=== PATIENT | male | born 1940 | race Caucasian/White ===

== ENCOUNTER 2018-06-19 19:38 | Inpatient (IN) | payer OTHER, MEDICARE ==
[~2018-06-19] VITALS: Ht 172.7 cm; Wt 67.4 kg
[2018-06-19 20:32] LABS: BASOPHILS ABSOLUTE AUTO 0.09 K/mm3 (0.00-0.23); BASOPHILS PERCENT AUTO 1 % (0-2); EOSINOPHILS ABSOLUTE AUTO 0.64 K/mm3 (0.00-0.68); EOSINOPHILS PERCENT AUTO 5 % (0-6); Hematocrit 30.4 % (37.0-53.0); Hemoglobin 8.6 g/dL (13.5-17.5); IMMATURE GRAN ABSOLUTE AUTO 0.05 K/mm3 (0.00-0.10); IMMATURE GRAN PERCENT AUTO 0 % (0-1); LYMPHOCYTES PERCENT AUTO 15 % (21-46); MONOCYTES ABSOLUTE AUTO 0.98 K/mm3 (0.16-1.47); MONOCYTES PERCENT AUTO 8 % (4-13); Mean Corpuscular HGB 20.1 pg (26.0-34.0); Mean Corpuscular HGB Conc 28.3 g/dL (31.5-36.5); Mean Corpuscular Volume 71 fL (80-100); Mean Platelet Volume 8.8 fL (9.1-12.4); NEUTROPHILS ABSOLUTE AUTO 9.13 K/mm3 (1.96-9.15); NEUTROPHILS PERCENT AUTO 71 % (41-73); Platelet Count 557 K/mm3 (150-400); RDW Standard Deviation 52.6 fL (35.1-46.3); Red Blood Cell Count 4.28 M/mm3 (4.30-5.90); White Blood Cell Count 12.79 K/mm3 (4.00-11.30)
[2018-06-19 20:51] LABS: Alanine Aminotransfer (ALT/SGP 15 U/L (12-78); Albumin, Blood 2.8 g/dL (3.4-5.0); Albumin/Globulin Ratio 0.6 (0.8-1.8); Alk Phos 69 U/L (50-136); Anion Gap 6 mmol/L (6-16); Aspartate Aminotrans (AST/SGOT 14 U/L (12-37); Bilirubin, Total 0.4 mg/dL (0.1-1.0); Blood Urea Nitrogen 18 mg/dL (8-24); CO2, Blood 26 mmol/L (21-32); Calcium, Blood 8.7 mg/dL (8.5-10.1); Chloride, Blood 103 mmol/L (98-108); Creatinine, Blood 1.06 mg/dL (0.60-1.20); Glomerular Filtration Rate >60 (60-); Glucose, Blood 98 mg/dL (70-99); Sodium, Blood 135 mmol/L (136-145); Total Protein, Blood 7.8 g/dL (6.4-8.2)
--- NOTE | 2018-06-20 08:06 | NUR ---
transfer report from Ariane in ER on PT sent from [facility] due to pulmonary abscess and potential heart valve vegetation. PT on no home rx says he takes dayquil or nyquil prn. on room air without complaints of acute distress. on zosyn. will be one tele and aspiration precautions. left dentures at home. DTR will bring in Echo will be done.
--- NOTE | 2018-06-20 08:42 | NUR ---
ECHOCARDIOGRAM COMPLETE
[2018-06-20 08:55] LABS: Hematocrit 27.6 % (37.0-53.0); Hemoglobin 7.9 g/dL (13.5-17.5); Mean Corpuscular HGB 20.1 pg (26.0-34.0); Mean Corpuscular HGB Conc 28.6 g/dL (31.5-36.5); Mean Corpuscular Volume 70 fL (80-100); Mean Platelet Volume 8.8 fL (9.1-12.4); Platelet Count 497 K/mm3 (150-400); RDW Coefficient Variation 20.8 % (11.7-14.2); RDW Standard Deviation 51.9 fL (35.1-46.3); Red Blood Cell Count 3.94 M/mm3 (4.30-5.90); White Blood Cell Count 12.92 K/mm3 (4.00-11.30)
[2018-06-20 08:56] LABS: IMMATURE RETIC FRACTION 26.8 % (2.3-16.0); RETIC HGB EQUIVALENT 20.5 pg (28.20-36.60); RETICULOCYTE ABSOLUTE 0.0465 M/mm3 (0.0200-0.1100); RETICULOCYTE COUNT PERCENT 1.18 % (0.50-2.50)
[2018-06-20 09:15] LABS: Anion Gap 7 mmol/L (6-16); Blood Urea Nitrogen 18 mg/dL (8-24); CO2, Blood 25 mmol/L (21-32); Calcium, Blood 8.5 mg/dL (8.5-10.1); Chloride, Blood 106 mmol/L (98-108); Creatinine, Blood 1.06 mg/dL (0.60-1.20); Glomerular Filtration Rate >60 (60-); Glucose, Blood 138 mg/dL (70-99); Potassium, Blood 4.1 mmol/L (3.5-5.5); Sodium, Blood 138 mmol/L (136-145)
[2018-06-20 09:20] LABS: Percent Saturation 3.3 % (20.0-50.0)
[2018-06-20 13:11] LABS: Stool Occult Blood Guaiac 1 Neg (Neg)
--- NOTE | 2018-06-20 18:15 | NUR ---
SHIFT SUMMARY PT IS INDEPENDENT, ON ROOM AIR, TELEMETRY MONITORING HAS BEEN DC'D. DR. GHOTRA AND DR. TAMAYO WERE ASKED TO CONSULT ON THIS PT. PT HAS A LUNG ABSCESS. PT IT ON ASPIRATION PRECAUTIONS AND HAD A SPEECH EVAL TODAY. THERE IS A CHANCE THE PT WILL GET A BIOPSY OF HIS LUNG TOMORROW. I DID GET ONE SPUTUM SAMPLE SENT TO LAB, MORE MAY BE REQUIRED. I COLLECTED A STOOL SAMPLE WELL AND SENT IT. PT IS RECEIVING IV ANTIBIOTICS.
--- NOTE | 2018-06-20 18:46 | NUR ---
SPUTUM CULTURES I DID COLLECT ONE OF THE TESTS. HOWEVER, DR. TAMAYO FELT LIKE MORE SPUTUM THAN WHAT I COLLECTED WOULD BE NEEDED.
--- NOTE | 2018-06-21 04:00 | NUR ---
77 YEAR OLD MALE [employer] WAS SENT FROM [facility] WHERE HE WAS EVALULATED FOR COMPLAINTS OF SOB AND DIFFICULTY SWALLOWING. HE HECENTLY HAD BARIUM SWALLOW. PT WAS 58 YEAR SMOKER QUIT IN APR 2018. ON ROOM AIR WITH SATS GREATER THAN 90%. ADMISSION DX OF PULMONARY ABSCESS AND HAD PULMONARY CONSULT YESTERDAY RX CT OF CHEST TODAY WITH CONTRAST. HAD ECHO EVAL YESTERDAY WHICH DIDN'T SHOW HEART VALVE VEGETATION. PT HAS COUGH PRODUCTIVE OF SOME THICK MORROW SPUTUM SENT FOR CULTURE. CONTINUES ON IV ANTIBIOTICS FOR PULMONARY INFECTION. POOR APPETITE RECENT WT LOSS. HAS PUREE DIET ORDERED WITH ASPIRATION PRECAUTIONS ORDERED. HAS DAUGHTER LOCALLY WHO BROUGHT IN HIS DENTURES. PICC LINE PLACEMENT ORDERED FOR ANTIBIOTICS.
--- NOTE | 2018-06-21 04:36 | NUR ---
CHEST XRAY SHOWS VERY LARGE HIATAL HERNIA AND RT LUNG NECROTIC TUMOR OR ABSCESS OF RT MIDDLE LOBE OF LUNG WITH NECROTIC LYMPH NODE. POSSIBLE ASBESTOS EXPOSURE IN [employer] YEARS OF [employer] WHILE IN [employer]. WORKING WITH SPEECH THERAPY AND TEST ORDERED FOR TODAY.
[2018-06-21 05:25] LABS: BASOPHILS ABSOLUTE AUTO 0.07 K/mm3 (0.00-0.23); BASOPHILS PERCENT AUTO 1 % (0-2); EOSINOPHILS ABSOLUTE AUTO 0.83 K/mm3 (0.00-0.68); EOSINOPHILS PERCENT AUTO 6 % (0-6); Hematocrit 28.5 % (37.0-53.0); Hemoglobin 8.1 g/dL (13.5-17.5); IMMATURE GRAN ABSOLUTE AUTO 0.05 K/mm3 (0.00-0.10); IMMATURE GRAN PERCENT AUTO 0 % (0-1); LYMPHOCYTES ABSOLUTE AUTO 1.26 K/mm3 (0.84-5.20); LYMPHOCYTES PERCENT AUTO 9 % (21-46); MONOCYTES ABSOLUTE AUTO 1.14 K/mm3 (0.16-1.47); MONOCYTES PERCENT AUTO 9 % (4-13); Mean Corpuscular HGB 19.8 pg (26.0-34.0); Mean Corpuscular HGB Conc 28.4 g/dL (31.5-36.5); Mean Corpuscular Volume 70 fL (80-100); Mean Platelet Volume 8.7 fL (9.1-12.4); NEUTROPHILS ABSOLUTE AUTO 10.05 K/mm3 (1.96-9.15); NEUTROPHILS PERCENT AUTO 75 % (41-73); Platelet Count 492 K/mm3 (150-400); RDW Coefficient Variation 20.8 % (11.7-14.2); RDW Standard Deviation 51.4 fL (35.1-46.3); Red Blood Cell Count 4.09 M/mm3 (4.30-5.90)
[2018-06-21 05:44] LABS: International Normalized Ratio 1.08; Prothrombin Time Results 11.4 Sec (9.7-11.5)
[2018-06-21 05:57] LABS: Anion Gap 11 mmol/L (6-16); Blood Urea Nitrogen 11 mg/dL (8-24); CO2, Blood 22 mmol/L (21-32); Calcium, Blood 8.7 mg/dL (8.5-10.1); Chloride, Blood 103 mmol/L (98-108); Creatinine, Blood 0.91 mg/dL (0.60-1.20); Glomerular Filtration Rate >60 (60-); Glucose, Blood 98 mg/dL (70-99); Potassium, Blood 3.9 mmol/L (3.5-5.5); Sodium, Blood 136 mmol/L (136-145)
--- NOTE | 2018-06-21 08:58 | NUR ---
CALLED DR HOSEA TERESA'S DR. TERESA STATES HE HAS A BAD HEADACHE. ORDERED TYLENOL PRN FOR HEADACHE PAIN.
--- NOTE | 2018-06-21 18:23 | NUR ---
SHIFT SUMMARY PT TAKEN FOR CT SCAN W/CONTRAST, AND A SPEECH MODIFIED BARIUM SWALLOW. HE ALSO HAD A PICC LINE PLACED TODAY. HE IS ON IV ANTIBIOTICS FOR AN ABSCESS. HOWEVER THE DR'S ARE TRYING TO DIAGNOSE THE MASS IN THE PT'S LUNGS, THEY SUSPECT IT IS COULD BE POSSIBLY CANCER. THERE INVOLVMENT IN THE LYMPH NODES WELL. THE PT IS AWARE OF THE POSSIBILITY. PLAN IS FOR PT TO DISCHARGE TOMORROW, HE WILL RETURN FOR A SCHEDULED BIOPSY NEXT WEEK. PT APPEARED MORE TIRED FROM ALL THE PROCEDURES/TESTS. NO OTHER OUTSTANDING CHANGES DURING SHIFT.
[2018-06-22 06:45] LABS: BASOPHILS ABSOLUTE AUTO 0.06 K/mm3 (0.00-0.23); BASOPHILS PERCENT AUTO 0 % (0-2); EOSINOPHILS ABSOLUTE AUTO 0.92 K/mm3 (0.00-0.68); EOSINOPHILS PERCENT AUTO 6 % (0-6); Hematocrit 29.3 % (37.0-53.0); Hemoglobin 8.3 g/dL (13.5-17.5); IMMATURE GRAN ABSOLUTE AUTO 0.05 K/mm3 (0.00-0.10); IMMATURE GRAN PERCENT AUTO 0 % (0-1); LYMPHOCYTES ABSOLUTE AUTO 1.26 K/mm3 (0.84-5.20); LYMPHOCYTES PERCENT AUTO 9 % (21-46); MONOCYTES ABSOLUTE AUTO 1.06 K/mm3 (0.16-1.47); MONOCYTES PERCENT AUTO 7 % (4-13); Mean Corpuscular HGB 19.8 pg (26.0-34.0); Mean Corpuscular HGB Conc 28.3 g/dL (31.5-36.5); Mean Corpuscular Volume 70 fL (80-100); Mean Platelet Volume 8.6 fL (9.1-12.4); NEUTROPHILS ABSOLUTE AUTO 11.18 K/mm3 (1.96-9.15); NEUTROPHILS PERCENT AUTO 77 % (41-73); Platelet Count 479 K/mm3 (150-400); RDW Coefficient Variation 20.6 % (11.7-14.2); RDW Standard Deviation 51.4 fL (35.1-46.3); Red Blood Cell Count 4.19 M/mm3 (4.30-5.90); White Blood Cell Count 14.53 K/mm3 (4.00-11.30)
--- NOTE | 2018-06-22 06:46 | NUR ---
SHIFT SUMMARY: PT IS INDEPENDENT IN ROOM, A&O X 4. ON 2L VIA NC. LS COARSE T/O. ASPIRATION PRECAUTIONS IN PLACE. DENIES PAIN. PICC LINE PATENT AND FLUSHING; AM BLOOD DRAWS. POSS D/C TODAY.
[2018-06-22 06:59] LABS: Anion Gap 8 mmol/L (6-16); Blood Urea Nitrogen 12 mg/dL (8-24); Bun/Creatinine Ratio 13.6 (12.0-20.0); CO2, Blood 25 mmol/L (21-32); Calcium, Blood 8.7 mg/dL (8.5-10.1); Chloride, Blood 103 mmol/L (98-108); Creatinine, Blood 0.88 mg/dL (0.60-1.20); Glomerular Filtration Rate >60 (60-); Glucose, Blood 104 mg/dL (70-99); Potassium, Blood 4.2 mmol/L (3.5-5.5); Sodium, Blood 136 mmol/L (136-145)
--- NOTE | 2018-06-22 09:50 | NUR ---
PT PLEASANT COOP A/O. DENIES PAIN. H/R IRREG, NO MURMER NOTED. NO TELE. LUNGS CLEAR EXCEPT DIM LOW RT. ON 2L N/C. RESP EASY, UNLABORED. BT X4 LAST BM THIS AM. STATES SOME DIARRHEA THIS AM. VOIDS PER BATHROOM. INDEPENDANT IN ROOM. BED IN LOW POSITION, CALL LITE IN REACH, CALLS APPROP
[2018-06-22] MEDS ORDERED: ACET325 PO (11:12)
[2018-06-22] MEDS ORDERED: Ferrous Sulfat325 M2 PO (11:13)
[2018-06-22] MEDS ORDERED: LOPE2C PO (11:13)
[2018-06-22] MEDS ORDERED: SACC250C PO (11:13)
[2018-06-22] MEDS ORDERED: Augmentin 875-1 EACH PO (11:14)
--- NOTE | 2018-06-22 11:25 | NUR ---
MOST OFFICE CLOSED SAT THRU SUNDAY. OPEN SUNDAY. WE REQUESTED MOST OFFICE TO CALL PT SUNDAY. DISCUSSED WITH DR ROSE. IS AWARE AND NO CHANGES ORDERED.
[2018-06-22 11:30] LABS: International Normalized Ratio 1.17; Prothrombin Time Results 12.2 Sec (9.7-11.5)
--- NOTE | 2018-06-22 12:26 | NUR ---
IV PULLED BY ESTEFANY RUIZ. DISCHARGE REVIEWED WITH PT WHO VERBALIZED UNDERSTANDING OF MEDS AND INSTRUCTIONS. PT UNDERSTANDS MOST OFFICE CLOSED SUNDAY. NO LUNG BIOPSY AVAIL TO SCHEDULE NOW. DR MILTON MARTINEZ NOTIFIED. PT STILL D/C NORMAL.. MOST OFFICE TO CALL PT TUES WHEN IN. SCHEDULE WHEN CAN. PT PENDING RIDE FROM DAUGHTER SHORTLY
[2018-06-22 13:06] LABS: QUANTIFERON MITOGEN VALUE >10.00 IU/mL (.); QUANTIFERON NIL VALUE 0.05 IU/mL (.); QUANTIFERON TB1 AG VALUE 0.05 IU/mL (.); QUANTIFERON TB2 AG VALUE 0.05 IU/mL (.); QUANTIFERON-TB GOLD PLUS Negative (Negative)
--- NOTE | 2018-06-22 13:06 | NUR ---
PT WHEELED TO DOOR AT 1245. BY AIDE.
== END 2018-06-22 12:50 | disposition home or self-care (01) | DRG 180 ==
LOC: ER 19:38 → MEDS 23:35 → ICUE 06-20 00:56 → MEDS 06-20 03:39 → ENPENDDIS 06-22 10:35 → MEDS 06-22 12:50
PROVIDERS: Emergency Medicine; Hospitalist; Internal Medicine Critical Care Medicine; Nurse Practitioner Acute Care; ADMIT Internal Medicine
PROC: 02HV33Z Insertion of Infusion Device into Superior Vena Cava, Percutaneous Approach (ICD-10-PCS; principal; 2018-06-19)
DX: C34.90 Malignant neoplasm of unspecified part of unspecified bronchus or lung (principal); J96.91 Respiratory failure, unspecified with hypoxia; J84.9 Interstitial pulmonary disease, unspecified; D50.9 Iron deficiency anemia, unspecified; I48.2 Chronic atrial fibrillation; K44.9 Diaphragmatic hernia without obstruction or gangrene; J92.0 Pleural plaque with presence of asbestos; R63.4 Abnormal weight loss
CPT/HCPCS: 36415; 36569; 71046; 71260; 74230; 80048; 80053; 82272; 82728; 83540; 83550; 83605; 83735; 83880; 85025; 85027; 85045; 85610; 85651; 85730; 86140; 86480; 87040; 92526; 92610; 92611; 93005; 93010; 93306; 94761; 96361; 96365; 96366; 96367; 96368; 99285-25; C1751; C1894; J0295; J0696; J1650; J2543; J7030; J7050; Q9967

== ENCOUNTER 2018-07-05 09:38 | Day surgery (SDC) | payer MEDICARE ==
[~2018-07-05 09:38] MED LIST: ACET325 PO; Augmentin 875-1 EACH PO; Ferrous Sulfat325 M2 PO; LOPE2C PO; SACC250C PO
--- NOTE | 2018-07-05 11:15 | NUR ---
PT IN NO ACUTE DISTRESS. WARM BLANKET PROVIDED. CALL LIGHT IN REACH.
--- NOTE | 2018-07-05 12:05 | NUR ---
PT CONTINUES TO SLEEP, RESPIRATIONS EVEN AND UNLABORED. CALL LIGHT W/I REACH.
--- NOTE | 2018-07-05 12:44 | NUR ---
PT AMB TO BATHROOM WITH STAND BY ASSISTANCE. PT IS SOB WHEN HE RETURNS TO THE [facility]. PT STATE THIS IS NORMAL FOR HIM. BIOX 97% ON RA. BLOOD PRESSURE SWITCHED TO SMALLER ADULT CUFF AND BLOOD PRESSURE TAKEN 124/77. PT DRINKING ORANGE JUICE.
--- NOTE | 2018-07-05 13:10 | NUR ---
REVIEWED DISCHARGE INSTRUCTIONS. BANDAID TO R SIDE D&I. PT DAUGHER HERE TO TAKE PT HOME. OUT OF DEPARTMENT VIA WHEELCHAIR.
== END 2018-07-05 12:00 | disposition home or self-care (01) ==
LOC: CT 09:38
DX: R91.8 Other nonspecific abnormal finding of lung field (principal); I48.0 Paroxysmal atrial fibrillation
CPT/HCPCS: 32405; 77012

== ENCOUNTER 2018-08-18 08:09 | Inpatient (IN) | payer MEDICARE, OTHER ==
[~2018-08-18] VITALS: Ht 180.3 cm; Wt 58.0 kg
[~2018-08-18 08:09] MED LIST changes: +ASCO500 PO; +DIGOX250 MCG PO; +DILT180 PO; +ELIQUIS5 MG PO; +Hair, Skin & N1 EACH PO; +METO10 PO; +Megestrol Aceta40 MG PO; +Zofran8 MG PO
[2018-08-18 09:54] LABS: Hematocrit 27.9 % (37.0-53.0); Hemoglobin 8.6 g/dL (13.5-17.5); Mean Corpuscular HGB 22.3 pg (26.0-34.0); Mean Corpuscular HGB Conc 30.8 g/dL (31.5-36.5); Mean Corpuscular Volume 72 fL (80-100); Platelet Count 128 K/mm3 (150-400); RDW Coefficient Variation 23.9 % (11.7-14.2); RDW Standard Deviation 59.7 fL (35.1-46.3); Red Blood Cell Count 3.86 M/mm3 (4.30-5.90)
[2018-08-18 10:05] LABS: BASOPHILS ABSOLUTE AUTO 0.01 K/mm3 (0.00-0.23); BASOPHILS PERCENT AUTO 3 % (0-2); EOSINOPHILS PERCENT AUTO 0 % (0-6); IMMATURE GRAN PERCENT AUTO 0 % (0-1); LYMPHOCYTES ABSOLUTE AUTO 0.14 K/mm3 (0.84-5.20); LYMPHOCYTES PERCENT AUTO 45 % (21-46); MONOCYTES ABSOLUTE AUTO 0.06 K/mm3 (0.16-1.47); MONOCYTES PERCENT AUTO 19 % (4-13); Mean Platelet Volume 10.7 fL (9.1-12.4); NEUTROPHILS PERCENT AUTO 32 % (41-73)
[2018-08-18 10:08] LABS: Alanine Aminotransfer (ALT/SGP 16 U/L (12-78); Albumin, Blood 2.1 g/dL (3.4-5.0); Albumin/Globulin Ratio 0.5 (0.8-1.8); Alk Phos 58 U/L (50-136); Anion Gap 11 mmol/L (6-16); Aspartate Aminotrans (AST/SGOT 9 U/L (12-37); Bilirubin, Total 1.2 mg/dL (0.1-1.0); Blood Urea Nitrogen 29 mg/dL (8-24); CO2, Blood 19 mmol/L (21-32); Calcium, Blood 7.9 mg/dL (8.5-10.1); Chloride, Blood 101 mmol/L (98-108); Creatinine, Blood 1.26 mg/dL (0.60-1.20); Glomerular Filtration Rate 59 (60-); Glucose, Blood 182 mg/dL (70-99); Potassium, Blood 4.5 mmol/L (3.5-5.5); Sodium, Blood 131 mmol/L (136-145); Total Protein, Blood 6.1 g/dL (6.4-8.2); Troponin I <0.015 ng/mL (0.000-0.040)
[2018-08-18 10:10] LABS: White Blood Cell Count 0.31 K/mm3 (4.00-11.30)
[2018-08-18] MEDS ORDERED: CODEINE-GUAIFE120 ML PO (12:43)
--- NOTE | 2018-08-18 14:20 | NUR ---
PATIENT ARRIVED TO ROOM VIA GURNEY, SLIDER SHEET MOVED TO TRANSFER PATIENT TO BED. PATIENT REPORTS NAUSEA, AND PAIN IN MOUTH AND ARMS. DAUGHTER MARA AT BEDSIDE TO ASSIST WITH MEDICATION AND HEALTH HX. LR AT 100ML/HR STARTED. LUNGS COARSE, MAINTAINING SATS ON RA. SORES IN NOUTH FROM RECENT CHEMO TX. PATIENT REPORTS HE USES A SCOOTER AT BASELINE TO GET AROUND. LACTIC ACID DOWN FROM 2.9 TO 2.5. PLACED IN NEUTROPENIC PRECAUTIONS.
--- NOTE | 2018-08-19 05:26 | NUR ---
SHIFT SUMMARY PT ALERT AND ORIENTED, VERY WEAK. BED ALARM ON, PT NOT USING CALL LIGHT WHEN NEEDING TO USE THE BSC. PT HAS BEEN HAVING LIQUID STOOLS DURING THE NIGHT. PT CONTINUES TO NOT USE CALL LIGHT AND BED ALARM SOUNDING, FOUND PT ON KNEES AT BEDSIDE UPON ENTERING ROOM. NO INJURIES NOTED. INSTRUCTED PT THAT HE NEEDS TO USE THE CALL LIGHT BEFORE GETTING UP. PT IN AGREEMENT WITH THIS AND NOW HAS BEEN RINGING FOR ASSISTANCE. HEART RATE HAS ALSO BEEN BOUNCING IN THE 120'S-130'S. HOSPITALIST NOTIFIED, ORDERS RECEIVED TO GIVE PT REGULAR DOSE OF DILTIAZEM BUT B/P LOW. HOSPITALIST NOTIFIED AGAIN AND DILTIAZEM HELD. PT ALSO HAS DIGOXIN LEVEL THIS AM. WILL CONTINUE TO MONITOR.
[2018-08-19 05:53] LABS: Hematocrit 23.5 % (37.0-53.0); Hemoglobin 7.2 g/dL (13.5-17.5); Mean Corpuscular HGB 22.2 pg (26.0-34.0); Mean Corpuscular HGB Conc 30.6 g/dL (31.5-36.5); Mean Corpuscular Volume 73 fL (80-100); Platelet Count 79 K/mm3 (150-400); RDW Coefficient Variation 23.9 % (11.7-14.2); RDW Standard Deviation 60.3 fL (35.1-46.3); Red Blood Cell Count 3.24 M/mm3 (4.30-5.90)
[2018-08-19 06:00] LABS: White Blood Cell Count 0.52 K/mm3 (4.00-11.30)
[2018-08-19 06:12] LABS: Anion Gap 10 mmol/L (6-16); Blood Urea Nitrogen 26 mg/dL (8-24); Bun/Creatinine Ratio 26.4 (12.0-20.0); CO2, Blood 21 mmol/L (21-32); Calcium, Blood 7.5 mg/dL (8.5-10.1); Chloride, Blood 103 mmol/L (98-108); Creatinine, Blood 0.98 mg/dL (0.60-1.20); Glomerular Filtration Rate >60 (60-); Glucose, Blood 147 mg/dL (70-99); Potassium, Blood 3.7 mmol/L (3.5-5.5); Sodium, Blood 134 mmol/L (136-145)
[2018-08-19 06:18] LABS: Digoxin (Lanoxin) 0.13 ug/mL (0.80-2.00)
[2018-08-19 06:23] LABS: BAND PERCENT MAN 8 % (0-8); BASOPHILS PERCENT MAN 0 % (0-2); EOSINOPHILS PERCENT MAN 0 % (0-6); LYMPHOCYTES ABSOLUTE MAN 0.24 K/mm3 (0.84-5.20); LYMPHOCYTES PERCENT MAN 48 % (21-46); MONOCYTES ABSOLUTE MAN 0.08 K/mm3 (0.16-1.47); MONOCYTES PERCENT MAN 16 % (4-13); NEUTROPHILS ABSOLUTE MAN 0.18 K/mm3 (1.96-9.15); SEG NEUTROPHILS PERCENT MAN 28 % (41-73); TOTAL CELLS COUNTED 25
--- NOTE | 2018-08-19 17:42 | NUR ---
PT HAS BEEN RESTING IN BED ALL DAY. PT IS AOX3 VERY TIRED. PT EXPRESSES HIS NEEDS APPROPRIATEDLY. LOOSE STOOLS CONTINUE, PT DENIES PAIN AT THIS TIME. FLUIDS RUNNING. ALARM IN PLACE WILL CONTINUE TO MONITOR.
--- NOTE | 2018-08-20 04:14 | NUR ---
SHIFT SUMMARY A/O, ABLE TO MAKE NEEDS KNOWN. HARD OF HEARING. COOPERATIVE WITH CARE. CALLS AND ANSWERS QUESTIONS APPORPIRATLEY. BECOMES VERY TACHYCARDIC AND DYSPNEIC WITH EXERTION; REMAINS ON TELE (AFIB 120's). HAD 2 LOOSE BM'S; STATED WOULD LIKE SOME IMMODIUM. LR RUNNING @ 150 ML/HR WITHOUT COMPLICATION TO 20G IN LFA. PRODUCTIVE COUGH NOTED WITH COARSE AND DIMINISHED LS. RESPIRATIONS REMAIN EVEN WITH EQUAL RISE/FALL. NO OTHER ACUTE CHANGES NOTED THIS SHIFT. APPEARED TO REST OFF AND ON. BED IN LOWEST POSITION. ALARM ON. CALL LIGHT AND BELONGINGS WITHIN REACH. WCTM. REPORT TO ONCOMING RN.
[2018-08-20 05:34] LABS: Hematocrit 22.7 % (37.0-53.0); Mean Corpuscular HGB 22.2 pg (26.0-34.0); Mean Corpuscular HGB Conc 30.8 g/dL (31.5-36.5); Mean Corpuscular Volume 72 fL (80-100); NRBC ABSOLUTE 0.04 K/mm3 (0.00-0.02); NRBC Auto 2.9 /100 WBC (0.0-0.2); Platelet Count 62 K/mm3 (150-400); RDW Coefficient Variation 23.9 % (11.7-14.2); RDW Standard Deviation 59.4 fL (35.1-46.3); Red Blood Cell Count 3.16 M/mm3 (4.30-5.90); White Blood Cell Count 1.36 K/mm3 (4.00-11.30)
[2018-08-20 05:56] LABS: Anion Gap 8 mmol/L (6-16); Blood Urea Nitrogen 22 mg/dL (8-24); Bun/Creatinine Ratio 32.8 (12.0-20.0); CO2, Blood 21 mmol/L (21-32); Calcium, Blood 7.4 mg/dL (8.5-10.1); Chloride, Blood 106 mmol/L (98-108); Creatinine, Blood 0.67 mg/dL (0.60-1.20); Glomerular Filtration Rate >60 (60-); Glucose, Blood 116 mg/dL (70-99); Potassium, Blood 3.3 mmol/L (3.5-5.5); Sodium, Blood 135 mmol/L (136-145)
[2018-08-20 06:19] LABS: BAND PERCENT MAN 4 % (0-8); BASOPHILS PERCENT MAN 0 % (0-2); EOSINOPHILS PERCENT MAN 0 % (0-6); LYMPHOCYTES ABSOLUTE MAN 0.32 K/mm3 (0.84-5.20); LYMPHOCYTES PERCENT MAN 24 % (21-46); MONOCYTES ABSOLUTE MAN 0.21 K/mm3 (0.16-1.47); MONOCYTES PERCENT MAN 16 % (4-13); NEUTROPHILS ABSOLUTE MAN 0.81 K/mm3 (1.96-9.15); SEG NEUTROPHILS PERCENT MAN 56 % (41-73); TOTAL CELLS COUNTED 25
--- NOTE | 2018-08-20 07:03 | NUR ---
0650 ON-CALL PHYSICIAN AND FAMILY NOTIFIED OF PASSING.
--- NOTE | 2018-08-20 10:22 | NUR ---
FAMILY CAME TO SEE PT AT 1000 AND REQUEST PT BE TAKEN TO [facility].
--- NOTE | 2018-08-20 12:03 | NUR ---
PT WAS PICKED UP BY [facility] AT 1155.
== END 2018-08-20 06:40 | DRG 871 ==
LOC: ER 08:09 → MEDS 11:45 → ERHOLD 11:45 → MEDS 14:15
PROVIDERS: Emergency Medicine; ADMIT Internal Medicine
DX: A41.9 Sepsis, unspecified organism (principal); J18.9 Pneumonia, unspecified organism; D61.810 Antineoplastic chemotherapy induced pancytopenia; N17.9 Acute kidney failure, unspecified; C34.2 Malignant neoplasm of middle lobe, bronchus or lung; C77.1 Secondary and unspecified malignant neoplasm of intrathoracic lymph nodes; J91.0 Malignant pleural effusion; R65.20 Severe sepsis without septic shock; D70.1 Agranulocytosis secondary to cancer chemotherapy; E86.0 Dehydration; Z66 Do not resuscitate; Z51.5 Encounter for palliative care; I46.9 Cardiac arrest, cause unspecified; J44.9 Chronic obstructive pulmonary disease, unspecified; G89.29 Other chronic pain; M54.5 Low back pain; Z87.891 Personal history of nicotine dependence; K12.31 Oral mucositis (ulcerative) due to antineoplastic therapy; T45.1X5A Adverse effect of antineoplastic and immunosuppressive drugs, initial encounter
CPT/HCPCS: 36415; 71046; 80048; 80053; 80162; 83605; 84145; 84484; 85025; 87040; 93005; 93010; 94640; 94760; 96365; 96375; 99285-25; J1650; J2405; J2543; J2550; J2930; J7050; J7120; J7512